=== PATIENT | female | born 1980 | race Caucasian/White ===

== ENCOUNTER → 2024-07-31 | Outpatient (CLI) | payer OTHER, SELFPAY ==
--- NOTE | 2024-07-31 16:37 | XR_ITS ---
Examination: Hand, right 3 views Technique: Hand AP, oblique, lateral 3 views Date and time of exam: July 31, 2024 1717 hours INDICATIONS: Hand pain one year. FINDINGS: Moderate osteopenia Moderate osteoarthritis first carpometacarpal joint Mild osteoarthritis distal interphalangeal joints second through fifth digits and interphalangeal joint first digit No erosive arthritis No fracture IMPRESSION: Osteoarthritis as above
--- NOTE | 2024-07-31 16:37 | XR_ITS ---
Examination: AP lateral soft tissue neck 2 views Technique one AP lateral soft tissue neck 2 views Exam date and time: July 31, 2024 1722 hours INDICATIONS: Soft tissue neck pain one year FINDINGS: Straightening normal cervical lordosis Moderate disc narrowing C5-C6 No cervical fracture Intact odontoid No significant prevertebral soft tissue prominence Normal epiglottis No distention hypopharynx IMPRESSION: Moderate degenerative disc disease C5-C6
--- NOTE | 2024-07-31 16:37 | XR_ITS ---
Examination: Wrist, right 3 views Technique: Wrist AP, oblique, lateral 3 views Date and time of exam: July 31, 2024 1717 hours INDICATIONS: Wrist pain one year. FINDINGS: Moderate osteoarthritis first carpometacarpal joint Moderate osteopenia No fracture IMPRESSION: Moderate osteoarthritis first carpometacarpal joint
--- NOTE | 2024-07-31 16:37 | XR_ITS ---
Examination: Right elbow 3 views Technique: Elbow AP, oblique, lateral 3 views Exam date and time: July 31, 2024 1717 hours INDICATIONS: Elbow pain beginning one year ago. FINDINGS: No fracture or dislocation. No arthritic change. No elbow effusion 2 mm posterior bony olecranon spur IMPRESSION: 2 mm posterior bony olecranon spur.
== END | disposition home or self-care (01) ==
PROVIDERS: Referring Provider Family Medicine; Visit Provider Family Medicine
DX: M18.11 Unilateral primary osteoarthritis of first carpometacarpal joint, right hand (principal); M19.041 Primary osteoarthritis, right hand; M25.521 Pain in right elbow; M50.322 Other cervical disc degeneration at C5-C6 level
CPT/HCPCS: 70360; 73080; 73110; 73130